=== PATIENT | female | born 1975 | race African-American/Black ===

== ENCOUNTER 2022-03-24 05:39 | Inpatient (IN) | payer OTHER ==
[2022-03-20 11:13] VITALS: BMI 22.8
[2022-03-24] MEDS ORDERED: MIDAZOLAM HCL 2 MG/2 ML SINGLE DOSE VIAL ONE ×2 (06:52→07:54)
[2022-03-24] MEDS ORDERED: ROCURONIUM BROMIDE 50 MG/5 ML SYRINGE ONE (06:53)
[2022-03-24] MEDS ORDERED: PROPOFOL 40 ML ONE (06:53)
[2022-03-24] MEDS ORDERED: SUCCINYLCHOLINE CHLORIDE 200 MG/10 ML SYRINGE ONE (06:53)
[2022-03-24] MEDS ORDERED: LIDOCAINE HCL/PF 2% SDV 5ML VIAL ONE (06:53)
[2022-03-24] MEDS ORDERED: BUPIVACAINE LIPOSOME/PF (EXPAREL) 266 MG/20 ML VIAL ONE (07:54)
[2022-03-24] MEDS ORDERED: BUPIVACAINE HCL 100 ML ONE (07:54)
[2022-03-24] MEDS ORDERED: CEFAZOLIN 2 GM in DEXTROSE 5%-WATER - 100 ML IVPB ONE (08:07)
[2022-03-24] MEDS ORDERED: ceFAZolin SODIUM 1 GM VIAL IVPB ONE (08:32)
[2022-03-24] MEDS ORDERED: ceFAZolin SODIUM 1 GM VIAL ONE ×2 (08:37→09:41)
[2022-03-24] MEDS ORDERED: HYDROmorphone HCl 2 MG/ML VIAL ONE (08:43)
[2022-03-24] MEDS ORDERED: ONDANSETRON 4 MG/2 ML VIAL IVPUSH PRN (09:03)
[2022-03-24] MEDS ORDERED: oxyCODONE HCL 5 MG TABLET PO PRN (09:06)
[2022-03-24] MEDS ORDERED: ACETAMINOPHEN 1000 MG/100 ML BAG IVPB ONE (09:30)
[2022-03-24] MEDS ORDERED: DEXAMETHASONE SOD PHOSPHATE 4 MG/1 ML VIAL ONE (09:39)
[2022-03-24] MEDS ORDERED: KETOROLAC TROMETHAMINE 30 MG/1 ML VIAL ONE (09:39)
[2022-03-24] MEDS ORDERED: GLYCOPYRROLATE 0.2 MG/1 ML VIAL ONE (09:54)
[2022-03-24] MEDS ORDERED: NEOSTIGMINE METHYLSULFATE 0.5 MG/ML - 10 ML MDV ONE (09:54)
[2022-03-24] MEDS ORDERED: ACETAMINOPHEN 325 MG TABLET (FP) PO PRN (10:12)
[2022-03-24] MEDS ORDERED: ACETAMINOPHEN INJECTION 100 ML IVPB ONE (10:57)
[2022-03-24] MEDS: LACTATED RINGERS SOLUTION 1,000 ML IV SCH ×2 (12:44→19:15)
[2022-03-24] MEDS: KETOROLAC TROMETHAMINE 30 MG/1 ML VIAL IVPUSH SCH ×2 (15:36→15:38)
[2022-03-24] MEDS: HYDROmorphone HCl 2 MG/ML VIAL IVPB PRN ×2 (17:09→21:20)
[2022-03-24] MEDS: CEFAZOLIN SODIUM 2 GM in DEXTROSE 5%-WATER 100 ML IVPB SCH (18:02)
[2022-03-24] MEDS: ACETAMINOPHEN 500 MG TABLET (FP) PO SCH (18:42)
[2022-03-25] MEDS: HYDROmorphone HCl 2 MG/ML VIAL IVPB PRN (01:24)
[2022-03-25] MEDS: CEFAZOLIN SODIUM 2 GM in DEXTROSE 5%-WATER 100 ML IVPB SCH (03:24)
[2022-03-25] MEDS: ACETAMINOPHEN 500 MG TABLET (FP) PO SCH ×3 (03:25→18:50)
[2022-03-25 08:05] LABS: HEMATOCRIT 24.7 % (32.4-45.2); HEMOGLOBIN 8.3 GM/dL (10.7-15.3); MCH 28.9 pg (25.7-33.7); MCHC 33.7 g/dl (32.0-36.0); MEAN CELL VOLUME 85.8 fl (80-96); PLATELET COUNT 177 10^3/uL (134-434); RBC 2.88 M/mm3 (3.60-5.2); RDW 13.9 % (11.6-15.6); WHITE BLOOD COUNT 9.6 K/mm3 (4.0-10.0)
[2022-03-25] MEDS: oxyCODONE HCL 5 MG TABLET PO PRN ×3 (08:29→22:07)
[2022-03-25] MEDS ORDERED: FERROUS SO4 325 MG TABLET (FP) ONE (11:13)
[2022-03-25] MEDS ORDERED: ACETAMINOPHEN 500 MG TABLET (FP) ONE (11:13)
[2022-03-25] MEDS: FERROUS SO4 325 MG TABLET (FP) PO SCH ×2 (11:16→22:07)
[2022-03-26] MEDS: ACETAMINOPHEN 500 MG TABLET (FP) PO SCH ×2 (02:21→12:14)
[2022-03-26] MEDS: FERROUS SO4 325 MG TABLET (FP) PO SCH (09:30)
[2022-03-26 13:25] VITALS: BP 102/64; PULSE 92; RESP 16; TEMP 99.1
== END 2022-03-26 11:50 | disposition home or self-care (01) | DRG 743 ==
LOC: J2C 05:39 → J3W 12:56
PROVIDERS: ADMIT Obstetrics & Gynecology; ATTEND Obstetrics & Gynecology
PROC: 0UT70ZZ Resection of Bilateral Fallopian Tubes, Open Approach (ICD-10-PCS; 2022-03-24)
PROC: 0DNW0ZZ Release Peritoneum, Open Approach (ICD-10-PCS; 2022-03-24)
PROC: 0UT90ZL Resection of Uterus, Supracervical, Open Approach (ICD-10-PCS; principal; 2022-03-24 08:00)
DX: D25.9 Leiomyoma of uterus, unspecified (principal); N92.1 Excessive and frequent menstruation with irregular cycle; R10.2 Pelvic and perineal pain; N73.6 Female pelvic peritoneal adhesions (postinfective)
CPT/HCPCS: 36415; 80053; 84702; 84703; 85025; 85027; 85610; 85730; 86593; 86780; 86850; 86900; 86901; 88305-TC; 88307-TC; 94010; 94760; C9803-CS; U0003; U0005